=== PATIENT | female | born 1980 | race Caucasian/White ===

== ENCOUNTER → 2019-12-11 | Outpatient (CLI) | payer OTHER | LOC: M.ULTRA 11:30 | PROVIDERS: ATTEND Specialist | DX: M79.661 Pain in right lower leg (principal) ==

== ENCOUNTER → 2021-05-20 | Outpatient (CLI) | payer OTHER | LOC: EDSTATUS 09:52 → M.RAD 11:04 → EDSTATUS 16:22 → M.RAD 16:24 → EDSTATUS 17:04 → M.RAD 17:27 | PROVIDERS: ATTEND Specialist | DX: Z12.31 Encounter for screening mammogram for malignant neoplasm of breast (principal) ==